=== PATIENT | female | born 1950 | race Caucasian/White ===

== ENCOUNTER 2017-08-27 10:18 | Emergency (ER) | payer OTHER ==
[~2017-08-27] VITALS: Ht 165.1 cm; Wt 102.8 kg
[2017-08-27 10:35] VITALS: BP 222/144
[2017-08-27] MEDS ORDERED: LOPRESSOR50 MG PO (10:44)
== END 2017-08-27 11:24 | disposition home or self-care (01) ==
LOC: EME 10:18
DX: J06.9 Acute upper respiratory infection, unspecified (principal); R03.0 Elevated blood-pressure reading, without diagnosis of hypertension; T48.5X5A Adverse effect of other anti-common-cold drugs, initial encounter; F17.200 Nicotine dependence, unspecified, uncomplicated; Z85.41 Personal history of malignant neoplasm of cervix uteri
CPT/HCPCS: 99281; 99284

== ENCOUNTER 2017-12-11 14:30 | Emergency (ER) | payer OTHER ==
[~2017-12-11 14:30] MED LIST: LOPRESSOR50 MG PO
== END 2017-12-11 14:37 ==
LOC: EME 14:30
PROC: 5A12012 Performance of Cardiac Output, Single, Manual (ICD-10-PCS; principal; 2017-12-11)
DX: I46.9 Cardiac arrest, cause unspecified (principal); I10 Essential (primary) hypertension; J45.909 Unspecified asthma, uncomplicated; Z85.41 Personal history of malignant neoplasm of cervix uteri
CPT/HCPCS: 80048; 81003; 82150; 83605; 83690; 84484; 85025; 85610; 85730; 86850; 86900; 86901; 87040; 99281; 99284; G0480; J0282; J0461